=== PATIENT | female | born 2005 | race Caucasian/White ===

== ENCOUNTER 2025-01-27 12:06 | Emergency (ER) | payer BC, SELFPAY ==
[2025-01-27 12:21] VITALS: BP 128/80
[2025-01-27 12:44] VITALS: BMI 18.3
[2025-01-27 13:17] LABS: % Basophils 0.1 % (0-2); % Immature Granulocytes 0.4 % (0-0.5); % Lymphocytes 10.1 % (20.5-51.1); % Monocytes 5.9 % (1.7-9.3); % Neutrophils 83.5 % (42.2-75.2); Absolute Immature Granulocytes 0.1 10^3/uL (0-0.05); Absolute Lymphocytes 1.7 10^3/uL (1.2-3.4); Absolute Neutrophils 14.2 10^3/uL (1.4-6.5); Hematocrit 34.6 % (37.0-47.0); Mean Corp Hgb Conc. 34.7 g/dL (33.0-37.0); Mean Corpuscular Hgb 28.6 pg (27.0-31.0); Mean Corpuscular Volume 82.4 fL (81.0-99.0); Mean Platelet Volume 8.7 fL (7.4-10.4); Nucleated Red Blood Cells % 0 %; Platelet Count 389 10^3/uL (130-400); Red Cell Dist. Width 12.7 % (11.5-14.5); White Blood Cell Count 16.9 10^3/uL (4.8-10.8)
[2025-01-27 13:24] LABS: HCG, Serum Qualitative Screen Negative
[2025-01-27 13:27] LABS: ALT (SGPT) 17 U/L (0-35); AST (SGOT) 21 U/L (14-36); Albumin 5.4 g/dl (3.5-5.0); Alkaline Phosphatase 50 U/L (38-126); Blood Urea Nitrogen 14 mg/dl (7-17); Calcium 11.1 mg/dl (8.4-10.2); Carbon Dioxide 25 mmol/L (22-30); Chloride 101 mmol/L (98-107); Estimated Creatinine Clearance 104 ml/min; Glucose 120 mg/dl (70-99); Lipase 40 U/L (23-300); Sodium 142 mmol/L (135-145); Total Bilirubin 0.9 mg/dl (0.2-1.3); Total Protein 8.5 g/dl (6.3-8.2); eGFR > 60.00
--- NOTE | 2025-01-27 13:32 | ED.GENMED ---
History of Present Illness
General
Chief Complaint: Abdominal Symptoms
Time Seen by Provider: 01/27/25 13:04
History of Present Illness
History of Present Illness:
Patient is a 20-year-old female with a history of recurrent cyclical vomiting who presents to the emergency department with vomiting. She notes that her symptoms usually occur around her menstrual period which she had just last week. She notes
that over the past 3 weeks she has been having some nausea and vomiting in the morning. Over the past 24 hours she endorses persistent vomiting and inability to tolerate p.o. she endorses epigastric abdominal pain that is nonradiating
Phy Exam
Physical Exam
Physical Exam:
GENERAL APPEARANCE: NAD, well developed/ well nourished
EYES lids/conjunctiva normal
EARS/NOSE/THROAT Mucous membranes moist, uvula midline without oral pharyngeal erythema, exudate or swelling
HEAD/NECK normocephalic atraumatic, neck is supple.
RESPIRATORY respiratory effort normal, speaks in full sentences, no accessory muscle use. Lungs clear to auscultation without rhonchi, wheezes, rales
CARDIAC Regular rate and rhythm, no edema.
ABDOMINAL mild epigastric tenderness to palpation. No peritoneal signs. No tenderness at McBurney's point
MUSCLES/EXTREMITIES No abnormal range of motion, no swelling.
SKIN Warm, pink and dry. No rashes
NEUROLOGICAL Speech is clear and appropriate. Normal level of consciousness. 5/5 strength in all extremities.
PSYCH Normal mood and affect. Judgement/competence is appropriate
Course
Orders/Labs/Results
Orders:
Orders
01/27/25 12:13
Test Result ONCE
01/27/25 12:52
Complete Blood Count/With Diff Urgent
Comprehensive Metabolic Panel Urgent
HCG, Serum Qualitative Screen Urgent
Comment: Notify provider if positive test present
Lipase Urgent
01/27/25 13:29
0.9% Sodium Chloride 1000 ml [Nss] 1,000 ml IV BOLUS
Ondansetron Injectable [Zofran] 4 mg IV NOW STA
01/27/25 15:14
Prochlorperazine [Compazine] 10 mg IV NOW STA
Abnormal Lab Results
01/27/25
12:52
WBC 16.9 H 10^3/uL
(4.8-10.8)
Hct 34.6 L %
(37.0-47.0)
Abs Immat Gran (auto) 0.1 H 10^3/uL
(0-0.05)
Absolute Neuts (auto) 14.2 H 10^3/uL
(1.4-6.5)
Absolute Monos (auto) 1.0 H 10^3/uL
(0.1-0.6)
Neutrophils % 83.5 H %
(42.2-75.2)
Lymphocytes % 10.1 L %
(20.5-51.1)
Glucose 120 H mg/dl
(70-99)
Calcium 11.1 H mg/dl
(8.4-10.2)
Total Protein 8.5 H g/dl
(6.3-8.2)
Albumin 5.4 H g/dl
(3.5-5.0)
01/27/25 12:52
01/27/25 12:52
Vital Signs
Initial and Last Documented VS:
Initial Vital Signs
Temp Pulse Resp BP Pulse Ox
98.4 F 63 18 128/80 99
01/27/25 12:21 01/27/25 12:21 01/27/25 12:21 01/27/25 12:21 01/27/25 12:21
Last Documented Vital Signs
Temp Pulse Resp BP Pulse Ox
98.4 F 63 18 128/80 99
01/27/25 12:21 01/27/25 12:21 01/27/25 12:21 01/27/25 12:21 01/27/25 12:21
*Critical Care Note
Total Time (30-74mins, 75-104mins- exclusive of procedures): Not Applicable
ED Attending Note
ED Attending Note
ED Attending Note:
Patient presents with recurrent vomiting consistent with prior episodes of cyclic vomiting syndrome. She has nontender abdominal exam and is nontoxic in appearance. Will treat symptomatically and reassess
Patient feeling much better at this time. Metabolic panel is reassuring without evidence of significant dehydration or electrolyte abnormalities. CBC with noted leukocytosis. Patient has no abdominal pain at this time and no tenderness, doubt
intra-abdominal emergency, likely reactive from vomiting. Return precautions given for worsening symptoms
-
Portions of this chart may have been created with voice recognition software.� Occasional wrong word or��sound alike� substitutions may have occurred due to the inherent limitations of voice recognition software.
Discharge Plan
Departure
Patient with high blood pressure during this ER visit?: No
Discharge Problem:
Nausea & vomiting
Instructions: Nausea and Vomiting, Adult (DC)
Prescriptions:
New
prochlorperazine maleate 10 mg tablet
10 mg PO Q8H PRN (Reason: nausea and vomiting) Qty: 14 0RF
Referrals:
KHALID,OROZCO [Other]
Interventions
Interventions:
*Risk Screen - Suicide Last Done: 01/27/25 12:21
*General Assessment Last Done: 01/27/25 12:21
*Neglect/Abuse Screening Last Done: 01/27/25 12:44
*ED- Fall Risk Assessment Last Done: 01/27/25 12:21
*ED COVID-19 Vaccine History Last Done: 01/27/25 12:21
XV-Vrblfa-Ffhaasxeoy Assessment Last Done: 01/27/25 12:44
Discharge Date and Time
Print Language: GRENADIAN
[2025-01-27] MEDS: ZOFRAN 4 MG IV (13:56)
[2025-01-27] MEDS: NSS 1000 IV (13:57)
[2025-01-27] MEDS: COMPAZINE 10 MG IV (15:24)
[2025-01-27 16:28] VITALS: BP 99/63
== END 2025-01-27 17:07 | disposition home or self-care (01) ==
LOC: EMR 12:06
PROVIDERS: Emergency Medicine; EMERGENCY PHYSICIAN Emergency Medicine
DX: R11.2 Nausea with vomiting, unspecified (principal); R10.13 Epigastric pain; D72.829 Elevated white blood cell count, unspecified
CPT/HCPCS: 96374; 96375; 96361; 99284; 80053; 83690; 84703; 85025

== ENCOUNTER 2025-01-28 16:27 | Emergency (ER) | payer BC, SELFPAY ==
[2025-01-28 16:30] VITALS: BP 132/73
--- NOTE | 2025-01-28 17:35 | ED.GENMED ---
History of Present Illness
General
Chief Complaint: Abdominal Symptoms
Source: patient and records
Exam Limitations: none
Time Seen by Provider: 01/28/25 17:26
History of Present Illness
History of Present Illness:
20yoF with a history of cyclic vomiting syndrome presenting with her significant other for evaluation of vomiting. Symptoms began 2 days ago and have been persistent. She also reports a burning pain in her epigastric region that is nonradiating.
She was seen in the ED yesterday for the same and received IV Zofran as well as Compazine. She was able to be discharged and was given a prescription for Compazine. She has been taking Compazine, Benadryl, and Pepcid at home without any relief.
Symptoms are identical to her prior cyclic vomiting episodes. She used to have episodes every few months but has not had an episode in over a year. She denies any fevers or diarrhea. Patient follows with gastroenterology in [place] where
she lives. She is in the area for college. She admits to smoking marijuana daily but does not believe her current symptoms are related to this.
Phy Exam
Physical Exam
Physical Exam:
Appears uncomfortable, non-toxic
General Physical Exam
General Presentation: well appearing
General age: appears stated age
General Skin: warm and dry
General Habitus: normal
General Mental: alert
ENT Exam
ENT Exam: normocephalic
Cardiovascular Exam
Cardiovascular Exam: regular rate/rhythm
Pulmonary Exam
Pulmonary Exam: lungs clear, no respiratory distress, no rales, no crackles, no rhonchi and no wheezing
Gastrointestinal Exam
Gastrointestinal Exam: soft, non distended and other (+Epigastric tenderness. No tenderness throughout remainder of abdomen. Abdomen soft, non-distended. No rebound or guarding.)
Neurological Exam
Neurological Exam: alert
[place] Coma Scale
Eye Opening: Spontaneous
Verbal Response: Oriented
Motor Response: Obeys Commands
GCS Total Score: 15
Skin Exam
Skin Exam: normal color and warm/dry
Psychiatric Exam
Psychiatric Exam: normal mood/affect
Course
Orders/Labs/Results
Orders:
Orders
01/28/25 16:33
Test Result ONCE
01/28/25 17:34
0.9% Sodium Chloride 1000 ml [Nss] 1,000 ml IV BOLUS
Diphenhydramine [Benadryl] 25 mg IV NOW STA
Famotidine [Pepcid] 20 mg IV NOW STA
Ondansetron Injectable [Zofran] 4 mg IV NOW STA
US Abdomen Complete/Upper Urgent
Comment:
Reason For Exam: epigastric pain
01/28/25 18:02
Complete Blood Count/With Diff Urgent
Comprehensive Metabolic Panel Urgent
HCG, Serum Qualitative Screen Urgent
Lipase Urgent
01/28/25 20:16
Haloperidol Lactate [Haldol] 1 mg IM NOW STA
Ketorolac [Toradol] 15 mg IV NOW STA
01/28/25 20:18
Haloperidol Lactate [Haldol] 5 mg IM NOW STA
Abnormal Lab Results
01/28/25
18:02
WBC 14.6 H 10^3/uL
(4.8-10.8)
RBC 3.90 L 10^6/uL
(4.20-5.40)
Hgb 11.3 L g/dL
(12.0-16.0)
Hct 32.2 L %
(37.0-47.0)
Abs Immat Gran (auto) 0.1 H 10^3/uL
(0-0.05)
Absolute Neuts (auto) 11.2 H 10^3/uL
(1.4-6.5)
Absolute Monos (auto) 0.8 H 10^3/uL
(0.1-0.6)
Immature Gran % 0.6 H %
(0-0.5)
Neutrophils % 77.2 H %
(42.2-75.2)
Lymphocytes % 16.2 L %
(20.5-51.1)
Glucose 107 H mg/dl
(70-99)
Albumin 5.4 H g/dl
(3.5-5.0)
01/28/25 18:02
01/28/25 18:02
Vital Signs
Initial and Last Documented VS:
Initial Vital Signs
Temp Pulse Resp BP Pulse Ox
97.6 F 63 16 132/73 99
01/28/25 16:30 01/28/25 16:30 01/28/25 16:30 01/28/25 16:30 01/28/25 16:30
Last Documented Vital Signs
Temp Pulse Resp BP Pulse Ox
97.6 F 87 16 118/65 99
01/28/25 16:30 01/28/25 23:13 01/28/25 16:30 01/28/25 23:13 01/28/25 23:13
MDM/Problems Addressed
Differential Diagnosis Includes:
20yoF here with vomiting x 2 days. Also c/o burning epigastric pain. Hx of cyclic vomiting syndrome and this feels the same. Also smokes marijuana daily. Seen in ED yesterday for the same. VSS. She appears uncomfortable but is nontoxic. No signs
of peritonitis on abdominal exam. Differential diagnosis includes but is not limited to: Cyclic vomiting syndrome, cannabinoid hyperemesis syndrome, pancreatitis, biliary colic, dehydration
Initial ED plan: Check abdominal labs, hCG, and upper abdominal ultrasound. IV Zofran, Benadryl, Pepcid, and fluid bolus for symptoms.
*Critical Care Note
Total Time (30-74mins, 75-104mins- exclusive of procedures): Not Applicable
Update Note
Update Note:
Labs reveal leukocytosis with a white count of 14.6 which is improved from yesterday. Remainder of labs unremarkable including normal electrolytes, renal function, and LFTs. Upper abdominal ultrasound shows diffuse fatty liver but otherwise
negative for acute findings. Patient continues to have vomiting after initial round of antiemetics. IM Haldol subsequently ordered. Nausea significantly improved after receiving Haldol and there have been no further episodes of vomiting. Patient
is stable for discharge. Supportive care discussed. Advised follow-up with gastroenterology and ED return precautions reviewed. Patient discharged in stable condition.
ED Attending Note
-
Portions of this chart may have been created with voice recognition software.� Occasional wrong word or��sound alike� substitutions may have occurred due to the inherent limitations of voice recognition software.
Discharge Plan
Departure
Patient Disposition: Home (Routine Discharge)
Date of Disposition: 01/28/25
Time of Disposition: 23:06
Patient with high blood pressure during this ER visit?: No
Discharge Problem:
Nausea and vomiting
Instructions: Nausea and Vomiting, Adult (DC)
Prescriptions:
No Action
prochlorperazine maleate 10 mg tablet
10 mg PO Q8H PRN (Reason: nausea and vomiting) Qty: 14 0RF
Referrals:
Jenn Ulloa MD [Active] -
PRIVATE,PHYSICIAN [Family Provider] -
Activity Restrictions/Additional Instructions:
Continue taking Compazine as needed. Drink plenty of fluids and advance slowly to a bland diet (bananas, rice, applesauce, and toast.).
Please follow-up with gastroenterology. Return to the ER with any new or worsening symptoms.
Interventions
Interventions:
*Risk Screen - Suicide Last Done: 01/28/25 16:35
*General Assessment Last Done: 01/28/25 16:33
*Neglect/Abuse Screening Last Done: 01/28/25 18:07
*ED- Fall Risk Assessment Last Done: 01/28/25 18:07
*ED COVID-19 Vaccine History Last Done: 01/28/25 18:07
*Nursing Disposition Last Done: 01/28/25 23:32
EU-Tlvweu-Apevammisq Assessment Last Done: 01/28/25 18:13
Discharge Date and Time
Discharge Date/Time: 01/28/25 23:35
Print Language: BRUNEIAN
[2025-01-28] MEDS: NSS 1000 IV (18:03)
[2025-01-28] MEDS: ZOFRAN 4 MG IV (18:04)
[2025-01-28] MEDS: BENADRYL 25 MG IV (18:04)
[2025-01-28] MEDS: PEPCID 20 MG IV (18:05)
[2025-01-28 18:09] VITALS: BP 143/84; BMI 19.1
[2025-01-28 18:20] LABS: % Basophils 0.4 % (0-2); % Immature Granulocytes 0.6 % (0-0.5); % Lymphocytes 16.2 % (20.5-51.1); % Monocytes 5.6 % (1.7-9.3); % Neutrophils 77.2 % (42.2-75.2); Absolute Basophils 0.1 10^3/uL (0-0.2); Absolute Immature Granulocytes 0.1 10^3/uL (0-0.05); Absolute Lymphocytes 2.4 10^3/uL (1.2-3.4); Absolute Monocytes 0.8 10^3/uL (0.1-0.6); Absolute Neutrophils 11.2 10^3/uL (1.4-6.5); Hematocrit 32.2 % (37.0-47.0); Hemoglobin 11.3 g/dL (12.0-16.0); Mean Corp Hgb Conc. 35.1 g/dL (33.0-37.0); Mean Corpuscular Volume 82.6 fL (81.0-99.0); Mean Platelet Volume 8.9 fL (7.4-10.4); Nucleated Red Blood Cells % 0 %; Platelet Count 384 10^3/uL (130-400); Red Cell Dist. Width 12.7 % (11.5-14.5); White Blood Cell Count 14.6 10^3/uL (4.8-10.8)
[2025-01-28 18:30] LABS: HCG, Serum Qualitative Screen Negative
[2025-01-28 18:34] LABS: ALT (SGPT) 18 U/L (0-35); AST (SGOT) 22 U/L (14-36); Albumin 5.4 g/dl (3.5-5.0); Alkaline Phosphatase 56 U/L (38-126); Blood Urea Nitrogen 13 mg/dl (7-17); Calcium 10.1 mg/dl (8.4-10.2); Carbon Dioxide 24 mmol/L (22-30); Chloride 100 mmol/L (98-107); Estimated Creatinine Clearance 109 ml/min; Glucose 107 mg/dl (70-99); Lipase 60 U/L (23-300); Potassium 3.5 mmol/L (3.5-5.1); Sodium 140 mmol/L (135-145); Total Bilirubin 0.7 mg/dl (0.2-1.3); Total Protein 7.8 g/dl (6.3-8.2); eGFR > 60.00
[2025-01-28 20:17] VITALS: BP 136/81
[2025-01-28] MEDS: HALDOL 5 MG IM (20:32)
[2025-01-28] MEDS: TORADOL 15 MG IV (20:34)
[2025-01-28 23:13] VITALS: BP 118/65
== END 2025-01-28 23:35 | disposition home or self-care (01) ==
LOC: EMR 16:27
PROVIDERS: Student in an Organized Health Care Education/Training Program; EMERGENCY PHYSICIAN Emergency Medicine
DX: R11.2 Nausea with vomiting, unspecified (principal); F12.90 Cannabis use, unspecified, uncomplicated; R10.13 Epigastric pain; K76.0 Fatty (change of) liver, not elsewhere classified
CPT/HCPCS: 99284; 96374; 96375; 96361; 76700; 80053; 83690; 84703; 85025

== ENCOUNTER 2025-02-01 10:59 | Inpatient (IN) | payer BC, SELFPAY ==
[2025-01-29 08:38] VITALS: BP 148/99
[2025-01-29 09:05] VITALS: BMI 18.9
[2025-01-29 09:23] LABS: % Basophils 0.4 % (0-2); % Eosinophils 0.1 % (0-6); % Immature Granulocytes 0.5 % (0-0.5); % Lymphocytes 23.2 % (20.5-51.1); % Monocytes 7.3 % (1.7-9.3); % Neutrophils 68.5 % (42.2-75.2); Absolute Immature Granulocytes 0.1 10^3/uL (0-0.05); Absolute Lymphocytes 2.3 10^3/uL (1.2-3.4); Absolute Monocytes 0.7 10^3/uL (0.1-0.6); Absolute Neutrophils 6.7 10^3/uL (1.4-6.5); Hematocrit 30.3 % (37.0-47.0); Hemoglobin 10.6 g/dL (12.0-16.0); Mean Corpuscular Hgb 29.2 pg (27.0-31.0); Mean Corpuscular Volume 83.5 fL (81.0-99.0); Mean Platelet Volume 8.9 fL (7.4-10.4); Nucleated Red Blood Cells % 0 %; Platelet Count 331 10^3/uL (130-400); Red Blood Cell Count 3.63 10^6/uL (4.20-5.40); Red Cell Dist. Width 12.4 % (11.5-14.5); White Blood Cell Count 9.7 10^3/uL (4.8-10.8)
--- NOTE | 2025-01-29 09:24 | ED.GENMED ---
History of Present Illness
General
Chief Complaint: Abdominal Symptoms
Source: patient and records
Exam Limitations: none
Time Seen by Provider: 01/29/25 08:47
Nursing documentation reviewed up to this point in time: agreed with
History of Present Illness
History of Present Illness:
20-year-old female with past medical history as noted presents to the ER for evaluation of abdominal pain, nausea, vomiting. Patient has been here each of the last 2 days for similar symptoms. Symptoms started about 3 days ago and have essentially
been constant although she reports transient relief after each of her 2 emergency room visits over the past 48 hours. She reports pain in the epigastrium that is nonradiating. Associated with nausea and multiple episodes of vomiting. No clear
triggering factors noted. She says that masturbation relieves her symptoms. She denies any dysuria, hematuria, change in urinary frequency. She denies any vaginal bleeding or discharge. She has not had any diarrhea; she does report some mild
constipation. She has not had a fever or chills. She denies prior abdominal surgeries. She said she has had similar symptoms in the past; had endoscopy with no clear diagnosis; was diagnosed with cyclic vomiting. She did apparently report
marijuana use yesterday.
Review of Systems
Review of Systems
All Other Systems: ROS reviewed and negative except as documented in HPI and ROS
Constitutional: Denies fever or chills
Respiratory: Denies trouble breathing
Cardiac: Denies chest pain
ABD/GI: Reports abdominal pain, nausea, vomiting and constipated; Denies diarrhea
: Denies dysuria, frequency, flank pain or bleeding
Musculoskeletal: Denies neck pain or back pain
Neurological: Denies dizzy or headache
Phy Exam
Physical Exam
Physical Exam:
General: Awake, alert, oriented x3; no acute distress
Head: Normocephalic, atraumatic
Eyes: Conjunctiva normal, sclera anicteric
Throat: Airway intact, handling secretions
Neck: Trachea midline, supple without meningismus
Lungs: Clear to auscultation bilaterally, no wheezing, rales, rhonchi
Heart: Regular rate and rhythm, no murmurs, gallops, or rubs
Abd: Soft, non distended, tender to palpation in the epigastrium with no palpable masses
Back: No CVA tenderness
Neuro: No gross deficits
Skin: no rash
Extremities: Warm and well-perfused
Scores
Heart Failure Risk
Heart Failure Risk Score: Not Applicable
Heart Score for Chest Pain Patients
STEMI patient?: Not applicable
Withdrawal Assessment of Alcohol
Withdrawal Assessment Completed?: Not applicable
Course
Orders/Labs/Results
Orders:
Orders
01/29/25 08:50
Test Result ONCE
01/29/25 09:05
Complete Blood Count/With Diff Urgent
Comprehensive Metabolic Panel Urgent
HCG, Serum Qualitative Screen Urgent
01/29/25 09:22
CT Abd/pelvis W Iv Cont Urgent
Comment:
Reason For Exam: upper abd pain and tenderness, N/V
01/29/25 09:23
Electrocardiogram (*1) Urgent
Reason for Study: QTc Monitoring
EKG- Treatment ONCE
Haloperidol Lactate [Haldol] 2.5 mg IV NOW STA
01/29/25 09:24
0.9% Sodium Chloride 1000 ml [Nss] 1,000 ml IV BOLUS
01/29/25 09:35
Lipase Urgent
01/29/25 10:59
Ketorolac [Toradol] 15 mg IV NOW STA
Abnormal Lab Results
01/29/25
09:05
RBC 3.63 L 10^6/uL
(4.20-5.40)
Hgb 10.6 L g/dL
(12.0-16.0)
Hct 30.3 L %
(37.0-47.0)
Abs Immat Gran (auto) 0.1 H 10^3/uL
(0-0.05)
Absolute Neuts (auto) 6.7 H 10^3/uL
(1.4-6.5)
Absolute Monos (auto) 0.7 H 10^3/uL
(0.1-0.6)
Glucose 107 H mg/dl
(70-99)
01/29/25 09:05
01/29/25 09:05
Vital Signs
Initial and Last Documented VS:
Initial Vital Signs
Temp Pulse Resp BP Pulse Ox
36.7 C 60 16 148/99 99
01/29/25 08:38 01/29/25 08:38 01/29/25 08:38 01/29/25 08:38 01/29/25 08:38
Last Documented Vital Signs
Temp Pulse Resp BP Pulse Ox
36.7 C 60 16 148/99 99
01/29/25 08:38 01/29/25 08:38 01/29/25 08:38 01/29/25 08:38 01/29/25 08:38
MDM/Problems Addressed
Differential Diagnosis Includes:
Cannabinoid hyperemesis syndrome, cyclic vomiting, gastroparesis, gastritis, PUD, bowel obstruction, Cholelithiasis, cholecystitis, pancreatitis
MDM/Problems Addressed:
20-year-old female returns for the third time in 3 days for evaluation of epigastric pain with nausea and vomiting. Unremarkable workup previous 2 visits including labs and upper abdominal ultrasound yesterday. She did have transient symptomatic
relief but symptoms quickly returned when she went home. Vitals and exam as above. This clinical picture is consistent with cannabinoid hyperemesis syndrome. Nevertheless given refractory symptoms we will check CT abdomen pelvis. Repeat lab
work. Treat symptomatically�she reports significant improvement with Tylenol yesterday. EKG for QTc monitoring. Will reassess after the above.
Labs reviewed: CBC and CMP no clinically significant abnormalities. hCG negative. CT abdomen pelvis shows no acute abnormalities to account for her symptoms. Patient requesting repeat pain medication after initial mild improvement with Haldol.
Will plan to admit for continued management of intractable nausea and vomiting and failure of outpatient management�at this point working diagnosis would be cannabinoid hyperemesis syndrome. Discussed case with hospitalist.
*Radiology
Radiology exam reviewed: radiology read reviewed
*Pulse Oximetry
Patient hypoxic: no
*EKG
Interpreted by ED Provider?: Yes
Heart Rate: 52
Rate: bradycardiac
Rhythm: sinus
[place]: normal axis
Interval: normal interval and normal QT interval
QRS Pattern: normal QRS
Ischemia: no ischemia
*Critical Care Note
Total Time (30-74mins, 75-104mins- exclusive of procedures): Not Applicable
Data Reviewed
Review of Other/Old Records Reveals: Labs, Records and Radiology Studies
Source: patient and records
Patient Management
Social determinants of health affecting care: Substance abuse (Marijuana abuse)
Discussion with other providers: Hospitalist (Discussed with hospitalist)
Escalation/DeEscalation of care consider admission/obs:
Admission indicated
ED Attending Note
-
Portions of this chart may have been created with voice recognition software.� Occasional wrong word or��sound alike� substitutions may have occurred due to the inherent limitations of voice recognition software.
Discharge Plan
Departure
Patient Disposition: Admit
Date of Disposition: 01/29/25
Time of Disposition: 11:11
Admit to doctor: Errol
Presentation/result/management discussed w/ accepting MD/DO: Hospitalist
Discharge Problem:
Abdominal pain, Nausea & vomiting
Prescriptions:
No Action
diphenhydramine HCl [Benadryl] 25 mg Capsule
25 mg PO DAILYPRN PRN (Reason: nausea/vomiting)
prochlorperazine maleate 10 mg tablet
10 mg PO Q8HPRN PRN (Reason: nausea and vomiting)
Referrals:
PRIVATE,PHYSICIAN [Family Provider] -
Interventions
Interventions:
*Risk Screen - Suicide Last Done: 01/29/25 08:38
*General Assessment Last Done: 01/29/25 09:05
*Neglect/Abuse Screening Last Done: 01/29/25 08:38
SY-Bfjumd-Zwzehjbvfq Assessment Last Done: 01/29/25 09:12
Discharge Date and Time
Print Language: KHMER
[2025-01-29 09:36] LABS: ALT (SGPT) 17 U/L (0-35); AST (SGOT) 30 U/L (14-36); Albumin 4.3 g/dl (3.5-5.0); Alkaline Phosphatase 46 U/L (38-126); Blood Urea Nitrogen 12 mg/dl (7-17); Calcium 9.4 mg/dl (8.4-10.2); Carbon Dioxide 26 mmol/L (22-30); Chloride 104 mmol/L (98-107); Estimated Creatinine Clearance 107 ml/min; Glucose 107 mg/dl (70-99); Potassium 3.5 mmol/L (3.5-5.1); Sodium 139 mmol/L (135-145); Total Bilirubin 0.7 mg/dl (0.2-1.3); Total Protein 6.5 g/dl (6.3-8.2); eGFR > 60.00
[2025-01-29] MEDS: NSS 1000 IV ×2 (09:36→19:47)
[2025-01-29] MEDS: HALDOL 2.5 MG IV (09:36)
[2025-01-29 09:38] LABS: HCG, Serum Qualitative Screen Negative
[2025-01-29 10:12] LABS: Lipase 58 U/L (23-300)
[2025-01-29] MEDS: TORADOL 15 MG IV (11:08)
[2025-01-29 11:12] VITALS: BP 130/81
[2025-01-29] MEDS: PROTONIX IV 40 MG IV (11:48)
--- NOTE | 2025-01-29 13:53 | HPS.HSE ---
Addendum entered and electronically signed by Joesph Scott MD 01/29/25 19:03:
Attending Addendum-
I performed a history and physical exam of the patient and discussed his management with the resident. I reviewed the resident's note and agree with the documented findings and plan of care CC/HPI- Patient presents after multiple trips to ED for abd
pain and vomiting. Patient has been having intractable nonbilious non bloody vomiting and unable to marianne PO. Denies diarrhea sick contacts. No fevers chills Full 12 point ROS reviewed and negative except as documented Exam- vitals reviewed in EMR
GEN-pale appearing heart tachycardic abd soft TTP RUQ abd soft LE no edema Neuro AAO x 3 Skin-dry
Plan:
# Intractable Vomiting
- likely CHS
- admit to obs
- has had multiple ED visits
- could have component of endometriosis
- given Toradol and Haldol with improvement
- CT A/P 01/29- 1.Mild heterogeneity of the liver parenchyma with findings of periportal edema, likely secondary to hypervolemia. Mild wall thickening/pericholecystic fluid within the adjacent gallbladder
2.Unremarkable appendix. No nephrolithiasis or hydronephrosis.
3.Small amount of free fluid within the pelvis which could be physiologic in nature or secondary to a ruptured cyst. There is a rim-enhancing cyst within the left posterior pelvis measuring 19 mm.
- cont IVF, cont supportive care
- advance diet as tolerated
- advised to quit Cannibis
# Cannibis Use Disorder
- advised to quit
- check urine tox
# Anemia
- will require OP follow up
- likely in part dilutional
Code Full
Dispo DC home in am
Time spent coordinating care, review of plan of care with resident, personally reviewed previous ED records in EMR, med rec, labs, radiology, d/w nursing, family �- 75 mins
Original Note:
Family Physician
-
Family Physician: PHYSICIAN PRIVATE
Chief Complaint
-
Abdominal Pain
Intractable Nausea/Vomiting
History of Present Illness
Cassie is a 20 year old female with no significant past medical history who presented to the [facility] for recurrent intractable nausea and vomiting with multiple ED visits in the past 72 hours.
Her symptoms began the afternoon of 01/26/25 when she felt unwell, began to have abdominal pain and nausea while at the grocery store. She went home immediately where she vomited up food content, w/o blood or bile. During the next 48 hours she
developed intractable nausea and vomiting, with inability to tolerate PO. She has had similar symptoms in the past which tend to correlate with her menses. Her LMP was 1 week before the onset of symptoms. She was tried on oral prochlorperazine after
DC from the ED, however she still had abdominal pain, nausea and vomiting. Of note, she has a >1 year history of cannabis use, approximately 1g cartridge every 1-2 weeks, smoking every day. She admits to using cannabis the morning of 01/29/2025 in an
attempt to help the pain/n/v. She does not endorse any fevers, chills, diarrhea, constipation, dysuria during this time. She endorses history of STIs.
During interview she is not complaining of any nausea, vomiting or abd pain. She is comfortable, but tired.
Medical History
Past Medical History
Past Medical History: Reports None
Additional Past Medical History:
Possible Dx of Endometriosis
Past Surgical History: Reports None
Social History
Tobacco: Smoker (1-2 cig. every 1-2 months)
Alcohol: Occasional
Drug: Marijuana
Personal: Single
Employment: Employed
Family History
Family History: Other (Mother: Antiphospholipid Ab Syndrome)
Allergies / Home Medications
Allergies reflects when Allergies were last updated in [facility].
Home Medications with original date entered in [facility]
Allergy/Medication List:
Allergies
Allergy/AdvReac Type Severity Reaction Status Date / Time
erythromycin base Allergy Hives Verified 01/29/25 08:40
Penicillins Allergy Hives Verified 01/29/25 08:40
Sulfa (Sulfonamide Allergy Hives Verified 01/29/25 08:40
Antibiotics)
Home Medications
diphenhydramine HCl 25 mg capsule (Benadryl) 25 mg PO DAILYPRN PRN nausea/vomiting 01/29/25
prochlorperazine maleate 10 mg tablet 10 mg PO Q8HPRN PRN nausea and vomiting 01/29/25
Review of Systems
-
History Source: Patient
A 12 point ROS was completed and negative except as noted: Yes
Constitutional: Denies Fever or Chills
EENT: Reports No Symptoms
Respiratory: Reports No Symptoms
Cardiac: Reports No Symptoms
Abdomen/GI: Reports No Symptoms
: Reports No Symptoms
Musculoskeletal: Reports No Symptoms
Skin: Reports No Symptoms
Neurological: Reports No Symptoms
Endocrine: Reports No Symptoms
Hematologic/Lymphatic: Reports No Symptoms
Psych: Reports No Symptoms
Physical Exam
Vital Signs
Vital Signs
Temp Pulse Resp BP Pulse Ox
98.0 F 54 16 130/81 100
01/29/25 08:38 01/29/25 11:12 01/29/25 11:12 01/29/25 11:12 01/29/25 11:12
Physical Exam
General: Well Developed, Well Nourished, No Apparent Distress, Comfortable and Conversant
HEENT: NormoCephalic, Anicteric, Moist mucous membranes, PERRLA, [place] Conjunctivae, Nose Appears Normal and Ears Appear Normal
Respiratory: Clear; No Wheezes, Rales or Rhonchi
Cardiac: S1/S2 and Regular Rhythm; No Murmur or Rub
Breast: Deferred by me
GI: Soft, Non Distended, Normal Bowel Sounds and Tender (LUQ and Epigastric region)
Rectal: Deferred by Provider
Genito-urinary: No costovertebral tender
Musculoskeletal: No Clubbing, No Cyanosis and No Edema
Skin: Warm, Dry and IV/Catheter Site
Neuro: Awake, Alert and Oriented
Psych: Calm and Intact Judgment/Insight
Laboratory Results
-
01/29/25 09:05
01/29/25 09:05
Laboratory Results
Total Bilirubin 0.7 mg/dl (0.2-1.3) 01/29/25 09:05
AST 30 U/L (14-36) 01/29/25 09:05
ALT 17 U/L (0-35) 01/29/25 09:05
Alkaline Phosphatase 46 U/L (38-126) 01/29/25 09:05
Lipase 58 U/L (23-300) 01/29/25 09:35
Impression/Plan
-
20 year old female with recurrent episodes of intractable abdominal pain/nausea/vomiting x72 hours
CT Abd/pelvis W Iv Cont:
1. Mild heterogeneity of the liver parenchyma with findings of periportal edema, likely secondary to hypervolemia. Mild wall thickening/pericholecystic fluid within the adjacent gallbladder, which may be reactive in nature. Correlation with LFTs
recommended to exclude hepatitis.
2. Unremarkable appendix. No nephrolithiasis or hydronephrosis.
3. Small amount of free fluid within the pelvis which could be physiologic in nature or secondary to a ruptured cyst. There is a rim-enhancing cyst within the left posterior pelvis measuring 19 mm.
#Abdominal Pain
#Intractable Nausea/Vomiting
- possibly secondary to Endometriosis vs. Cannabinoid Hyperemesis Syndrome vs. multifactorial
- Patient has a history of cyclical vomiting/abdominal pain near time of menses which fits clinically, however she also has a clinical picture consistent with CHS along with concurrent continued cannabis use. Suspect sx are multifactorial, with
worsening of sx due to continued cannabis use.
- CT scan showing possible ruptured L ovarian cyst with small amount of free pelvic fluid
- given 1 dose Haldol/Toradol w/ improvement
- C/w Benadryl/Prochlorperazine prn
- gentle hydration
- Toradol prn for abd pain
- Observe for PO tolerance
#Cannabis Use Disorder
- counselled the patient on the importance of quitting cannabis use at she has now had 3 hospital visits for similar symptoms for which her cannabis use is likely contributing
DVT Ppx: Lovenox 40mg SC
Regular Diet
Code Status: Full Code
[2025-01-29 17:45] VITALS: BP 109/67
[2025-01-29 19:25] VITALS: BP 109/67; BMI 18.5
[2025-01-29 23:18] VITALS: BP 116/74
[2025-01-30] MEDS: TORADOL 15 MG IV ×3 (00:37→16:06)
[2025-01-30] MEDS: BENADRYL 25 MG PO (00:37)
[2025-01-30] MEDS: ZOFRAN 4 MG IV ×2 (01:44→11:53)
[2025-01-30] MEDS: NSS 1000 IV ×2 (06:14→16:12)
[2025-01-30 07:25] VITALS: BP 134/82
[2025-01-30] MEDS: PROTONIX 40 MG PO (07:51)
[2025-01-30 10:37] LABS: Urine Albumin Negative (Neg - Trace); Urine Bilirubin Negative (Negative); Urine Character Clear (Clear); Urine Color Yellow; Urine Glucose Negative (Negative); Urine Ketone 3+ (Negative); Urine Leukocyte Negative (Negative); Urine Nitrite Negative (Negative); Urine Occult Blood Negative (Negative); Urine Specific Gravity 1.015 (<1.030); Urine Urobilinogen Negative (Neg - 1+)
--- NOTE | 2025-01-30 11:10 | W.PN.HOSP.TC ---
Today's Communication/Plan
-
re-evaluate diet tolerance and symptoms later this afternoon
await UDS
Assessment / Plan
Assessment / Plan
Assessment:
Abd pain/Nausea/vomiting
- ddx: endometriosis vs cyclic vomiting from CHS vs other
- CT: mild heterogeneity of the liver parenchyma with findings of periportal edema, likely secondary to hypervolemia. Mild wall thickening/pericholecystic fluid within the adjacent gallbladder, which may be reactive in nature. Unremarkable
appendix. No nephrolithiasis or hydronephrosis. Small amount of free fluid within the pelvis which could be physiologic in nature or secondary to a ruptured cyst. There is a rim-enhancing cyst within the left posterior pelvis measuring 19 mm.
- labs unremarkable, no evidence of adrenal insufficiency
- continue support care
- re-trial diet
- MJ cessation advised. UDS pending
- UA clear
DVT ppx: Lovenox
Code: Full
Anticipated Discharge: Within 24 hours
Subjective/Interval History
-
Date of Service: January 30, 2025
vomited dinner last evening
pain controlled with Toradol
now hungry this AM and eager for diet
no nausea
no fever/chills
Objective Data
-
Vital Signs:
Vital Signs
Temp Pulse Resp BP Pulse Ox
98.2 F 56 18 134/82 98
01/30/25 07:25 01/30/25 07:25 01/30/25 07:25 01/30/25 07:25 01/30/25 07:25
Physical Exam
-
General: No Apparent Distress
HEENT: Normocephalic and Atraumatic
Respiratory: Negative Wheezes
Cardiac: Regular Rhythm and S1/S2
GI: Soft and Nontender
Genito-urinary: No Costovertebral Tender
Musculoskeletal: No Edema
Neuro: AO x 3
Psych: Calm
Data Reviewed
-
Total Time Spent with Patient (in minutes): 41
Labs: Labs Reviewed by me
[2025-01-30 12:00] LABS: Amphetamines Negative (Negative); Barbiturates Negative (Negative); Benzodiazepines Negative (Negative); Buprenorphine Negative (Negative); Cocaine Negative (Negative); Marijuana Positive (Negative); Methadone Negative (Negative); Methamphetamines Negative (Negative); Opiates Negative (Negative); Phencyclidine Negative (Negative); Tricyclic Antidepressants Negative (Negative)
[2025-01-30 15:33] VITALS: BP 118/76
--- NOTE | 2025-01-30 16:18 | CM ---
Awake oriented patient who lives in college dorm on first floor. She is independent in activates of daily living.She does not drive .She lives in [place]. Her SO Ignacio here with support.Observation letter given . Pt did not sign letter on chart.
No VN in past . No SNF hx
Pharmacy [facility] [address]
PLAN Home with no needs
[2025-01-30 23:27] VITALS: BP 101/61
[2025-01-31] MEDS: ZOFRAN 4 MG IV ×3 (00:40→12:49)
[2025-01-31] MEDS: TORADOL 15 MG IV ×3 (00:48→12:50)
[2025-01-31] MEDS: NSS 1000 IV ×3 (01:30→22:37)
[2025-01-31] MEDS: BENADRYL 25 MG PO (03:24)
[2025-01-31 06:32] LABS: Hematocrit 30.3 % (37.0-47.0); Hemoglobin 10.9 g/dL (12.0-16.0); Mean Corpuscular Hgb 29.5 pg (27.0-31.0); Mean Corpuscular Volume 81.9 fL (81.0-99.0); Mean Platelet Volume 9.1 fL (7.4-10.4); Platelet Count 334 10^3/uL (130-400); Red Cell Dist. Width 12.1 % (11.5-14.5); White Blood Cell Count 7.8 10^3/uL (4.8-10.8)
[2025-01-31 07:00] LABS: Blood Urea Nitrogen 4 mg/dl (7-17); Carbon Dioxide 20 mmol/L (22-30); Chloride 103 mmol/L (98-107); Estimated Creatinine Clearance 122 ml/min; Glucose 77 mg/dl (70-99); Potassium 3.5 mmol/L (3.5-5.1); Sodium 137 mmol/L (135-145); eGFR > 60.00
[2025-01-31 07:55] VITALS: BP 141/90
--- NOTE | 2025-01-31 09:14 | W.PN.HOSP.TC ---
Today's Communication/Plan
-
downgrade to clears
prn Zofran and Toradol
Assessment / Plan
Assessment / Plan
Assessment:
Abd pain/Nausea/vomiting
- ddx: endometriosis vs cyclic vomiting from Cannabis hyperemesis syndrome vs other
- no evidence of infections
- CT: mild heterogeneity of the liver parenchyma with findings of periportal edema, likely secondary to hypervolemia. Mild wall thickening/pericholecystic fluid within the adjacent gallbladder, which may be reactive in nature. Unremarkable
appendix. No nephrolithiasis or hydronephrosis. Small amount of free fluid within the pelvis which could be physiologic in nature or secondary to a ruptured cyst. There is a rim-enhancing cyst within the left posterior pelvis measuring 19 mm.
- labs unremarkable, no evidence of adrenal insufficiency
- continue support care - Toradol and Zofran prn. Stop Benadryl.
- diet: Clears
- MJ cessation advised. UDS confirms + MJ
- UA clear
DVT ppx: Lovenox
Code: Full
Anticipated Discharge: Within 24 hours
Subjective/Interval History
-
Date of Service: January 31, 2025
vomited dinner last night
this morning nausea, abd cramps
not eating breakfast this morning
Objective Data
-
Labs:
Laboratory Results
01/31/25
05:32
WBC 7.8
Hgb 10.9 L
Hct 30.3 L
Plt Count 334
Sodium 137
Potassium 3.5
Chloride 103
Carbon Dioxide 20 L
BUN 4 L
Creatinine 0.5 L
Glucose 77
Calcium 9.0
Vital Signs:
Vital Signs
Temp Pulse Resp BP Pulse Ox
98.0 F 55 14 141/90 100
01/31/25 07:55 01/31/25 07:55 01/31/25 07:55 01/31/25 07:55 01/31/25 07:55
I&O
01/30/25 01/31/25 02/01/25
06:59 06:59 06:59
Intake Total 0 / 3259
Balance 3259 / 3259
Physical Exam
-
General: No Apparent Distress
HEENT: Normocephalic and Atraumatic
Respiratory: Negative Wheezes
Cardiac: Regular Rhythm and S1/S2
GI: Soft and Nontender
Musculoskeletal: No Edema
Neuro: AO x 3
Hematologic / Lymphatic: No Lymphadenopathy
Psych: Calm
Data Reviewed
-
Total Time Spent with Patient (in minutes): 42
Labs: Labs Reviewed by me
[2025-01-31] MEDS: PROTONIX 40 MG PO (09:24)
[2025-01-31 15:54] VITALS: BP 120/66
[2025-01-31 23:20] VITALS: BP 103/54
[2025-02-01] MEDS: TORADOL 15 MG IV (06:12)
[2025-02-01 06:16] LABS: Hematocrit 34.3 % (37.0-47.0); Hemoglobin 12.1 g/dL (12.0-16.0); Mean Corp Hgb Conc. 35.3 g/dL (33.0-37.0); Mean Corpuscular Volume 82.3 fL (81.0-99.0); Mean Platelet Volume 9.2 fL (7.4-10.4); Platelet Count 362 10^3/uL (130-400); Red Blood Cell Count 4.17 10^6/uL (4.20-5.40); Red Cell Dist. Width 12.4 % (11.5-14.5); White Blood Cell Count 7.9 10^3/uL (4.8-10.8)
[2025-02-01 06:45] LABS: Carbon Dioxide 23 mmol/L (22-30)
[2025-02-01 06:59] LABS: Blood Urea Nitrogen 6 mg/dl (7-17); Calcium 9.4 mg/dl (8.4-10.2); Chloride 105 mmol/L (98-107); Estimated Creatinine Clearance 122 ml/min; Glucose 74 mg/dl (70-99); Potassium 3.5 mmol/L (3.5-5.1); Sodium 139 mmol/L (135-145); eGFR > 60.00
[2025-02-01 07:25] VITALS: BP 140/67
[2025-02-01] MEDS: PROTONIX 40 MG PO (07:26)
[2025-02-01] MEDS: ZOFRAN 4 MG IV (07:26)
--- NOTE | 2025-02-01 08:12 | W.PN.HOSP.TC ---
Addendum entered and electronically signed by Fili Reza MD, Resident 02/03/25 18:12:
#Underweight, BMI 18.5
Addendum entered and electronically signed by Joesph Scott MD 02/01/25 22:53:
Attending Addendum-
I saw and evaluated the patient. I reviewed the resident�s note and agree with findings and plan as documented in the resident�s note. Sub: tolerating PO denies pain in abd. improved sxs after taking hot shower No fevers chills N/V Full 12 point ROS
reviewed and negative except as documented Exam- vitals reviewed in EMR GEN-pale appearing heart RRR abd soft NT ND pos BS LE no edema Neuro AAO x 3
Plan:
# Intractable Vomiting
- likely CHS
- has had multiple ED visits
- could have component of endometriosis
- given Toradol and Haldol with improvement
- CT A/P 01/29- 1.Mild heterogeneity of the liver parenchyma with findings of periportal edema, likely secondary to hypervolemia. Mild wall thickening/pericholecystic fluid within the adjacent gallbladder
2.Unremarkable appendix. No nephrolithiasis or hydronephrosis.
3.Small amount of free fluid within the pelvis which could be physiologic in nature or secondary to a ruptured cyst. There is a rim-enhancing cyst within the left posterior pelvis measuring 19 mm.
- advance diet as tolerated - marianne PO
- advised to quit Cannibis
# Cannibis Use Disorder
- advised to quit
# Anemia
- resolved
- likely in part dilutional
Code Full
Dispo DC home
Time spent coordinating care, DC planning, review of DC plan of care with resident, transition of care, review of records, med rec/scripts sent electronically, consults, notes, d/w consultants, nursing, and CM� 31 mins
Original Note:
Today's Communication/Plan
-
Adding capsaicin cream
Monitor for PO intake
C/w IVF, pain control, antiemetics
Assessment / Plan
Assessment / Plan
20 year old female with recurrent episodes of intractable abdominal pain/nausea/vomiting x72 hours
CT Abd/pelvis W Iv Cont:
1. Mild heterogeneity of the liver parenchyma with findings of periportal edema, likely secondary to hypervolemia. Mild wall thickening/pericholecystic fluid within the adjacent gallbladder, which may be reactive in nature. Correlation with LFTs
recommended to exclude hepatitis.
2. Unremarkable appendix. No nephrolithiasis or hydronephrosis.
3. Small amount of free fluid within the pelvis which could be physiologic in nature or secondary to a ruptured cyst. There is a rim-enhancing cyst within the left posterior pelvis measuring 19 mm.
#Cannabinoid Hyperemesis Syndrome
- Patient has a history of cyclical vomiting/abdominal pain near time of menses which fits clinically, however she also has a clinical picture consistent with CHS along with concurrent continued cannabis use. Suspect sx are multifactorial, with
worsening of sx due to continued cannabis use.
- CT scan showing possible ruptured L ovarian cyst with small amount of free pelvic fluid
- c/w IVF
- Toradol prn for abd pain
- Add capsaicin cream for pain relief as n/v/abd pain persist
- Not tolerating regular diet, back on clears
#Cannabis Use Disorder
- counselled the patient on the importance of quitting cannabis use at she has now had 3 hospital visits for similar symptoms for which her cannabis use is likely contributing
DVT Ppx: Lovenox 40mg SC
Code Status: Full Code
Anticipated Discharge: Within 24 hours
Subjective/Interval History
-
Date of Service: February 01, 2025
Vomited this morning. Still experiencing cramp epigastric pain, 4-5/10 non-radiating, improved with Toradol. No new fevers/chills. No D/C/Blood BMs. Has been passing gas but not stool.
Objective Data
-
Labs:
Laboratory Results
02/01/25
05:18
WBC 7.9
Hgb 12.1
Hct 34.3 L
Plt Count 362
Sodium 139
Potassium 3.5
Chloride 105
Carbon Dioxide 23
BUN 6 L
Creatinine 0.6
Glucose 74
Calcium 9.4
Vital Signs:
Vital Signs
Temp Pulse Resp BP Pulse Ox
98.6 F 59 18 103/54 98
01/31/25 23:20 01/31/25 23:20 01/31/25 23:20 01/31/25 23:20 01/31/25 23:20
I&O
01/31/25 02/01/25 02/02/25
06:59 06:59 06:59
Intake Total 3260 / 3260 3700 / 3700
Balance 3260 / 3260 3700 / 3700
Review of Systems
-
History Source: Patient
Constitutional: Reports No Symptoms and Fever
EENT: Reports No Symptoms Reported
Respiratory: Reports No Symptoms
Cardiac: Reports No Symptoms
Abdomen/GI: Reports Abdominal Pain, Nausea and Vomiting
Genitourinary: Reports No Symptoms
Musculoskeletal: Reports No Symptoms
Skin: Reports No Symptoms
Neuro: Reports No Symptoms
Physical Exam
-
General: Well Developed, Well Nourished, No Apparent Distress, Comfortable and Conversant
HEENT: Normocephalic, Atraumatic, Moist Mucous Membranes, Anicteric and [place] Conjunctivae
Respiratory: Clear to Auscultation; Negative Wheezes, Rales or Rhonchi
Cardiac: Regular Rhythm and S1/S2; Negative Murmur or Rub
GI: Soft, Nondistended, Normal Bowel Sounds and Tender (Epigastric tenderness)
Genito-urinary: Deferred by me
Musculoskeletal: No Clubbing, No Cyanosis and No Edema
Skin: Warm, Dry and IV Access / Catheter Site
Neuro: Awake, Alert and Oriented
[2025-02-01 09:42] VITALS: BMI 18.5
[2025-02-01] MEDS: NSS 1000 IV (10:36)
[2025-02-01] MEDS: ZOSTRIX-HP 0.075% CREAM 1 APPLIC TOPICAL (12:08)
[2025-02-01 15:22] VITALS: BP 127/70
--- NOTE | 2025-02-01 15:36 | CM ---
Pt changed to inpatient . PT informed on inpatient status .
Pt tolerated full liquids.
She said she felt better and was ready for discharge.
She said her boyfriend mom Sandra will drive her home.
PLAN Home no needs
--- NOTE | 2025-02-01 16:50 | W.DCSUMMARY ---
Addendum entered and electronically signed by Fili Reza MD, Resident 02/02/25 08:29:
Patient was admitted on 01/29/2025, not 02/01
Addendum entered and electronically signed by Joesph Scott MD 02/01/25 22:55:
Read, reviewed, and agree. See same day progress note for additional details. Of note revised admission date is 01/29 NOT 02/01.
Rueprto Scott MD
Original Note:
Documented by User: Fili Reza MD, Resident 02/01/25 17:09
Discharge Summary
Discharge Data
Date of Admission: 02/01/25
Date of Discharge: 02/01/25
Total time spent discharging patient (in min): >30m
-
Pending Results: No
Hospital Course
Discharging Physician : Dr. Fili Reza, Dr. Joesph Scott
Disposition : Home
Primary care physician : Unknown
Principal Discharge diagnosis : Cannabinoid Hyperemesis Syndrome
Chronic Discharge diagnosis : Suspected Endometriosis
Hospital Course :
20 year old female with recurrent episodes of intractable abdominal pain/nausea/vomiting x72 hours
#Cannabinoid Hyperemsis Syndrome
- Daily Cannabis use >1 year, with new onset intractable vomiting, nausea, abdominal pain within 24 hours of last use of cannabis.
- CT scan showing possible ruptured L ovarian cyst with small amount of free pelvic fluid, but no other immediate causes for her sx
- managed with IVF
- Given x1 dose haldol with improvement in symptoms
- given prn Toradol, Zofran
- Advanced diet from NPO to clear liquids to full liquids with tolerance
- Hot showers eventually provided relief
#Cannabis Use Disorder
- counselled the patient on the importance of quitting cannabis use, as she has now had 3 hospital visits for similar symptoms for which her cannabis use is likely contributing. She expressed understanding.
She had no new episodes of N/V/Abd pain for >8hours, was tolerating her Full liquid diet and was discharged home.
The patient was given information to follow up with Gynecology at [facility] per her request.
Important imaging findings :
CT Abd/pelvis W Iv Cont:
LOWER CHEST: Lung bases clear. No pleural effusion.
LIVER: Mildly heterogeneous appearance with periportal edema.
GALLBLADDER: No radiopaque stones. Mild wall thickening/pericholecystic fluid.
BILE DUCTS: Within normal limits.
PANCREAS: Within normal limits.
SPLEEN: Within normal limits.
ADRENALS: Within normal limits.
KIDNEYS/URETERS: Within normal limits.
BOWEL: No obstruction or wall thickening. Appendix is unremarkable.
PERITONEUM: Small amount of free fluid within the pelvis with rim enhancing focus seen within the left pelvis, possibly a ruptured cyst measuring 19 mm (image 67, series 201).
REPRODUCTIVE: See above. Unremarkable appearance of the uterus and right ovary.
BLADDER: Within normal limits.
VESSELS: Non-aneurysmal abdominal aorta.
RETROPERITONEUM: No retroperitoneal or pelvic lymphadenopathy.
ABDOMINAL WALL: Within normal limits.
BONES: No suspicious lesions.
Procedure findings :
None.
Discharge Plan
-
Patient Disposition: Home (Routine Discharge)
Discharge Diagnosis/Procedures: cyclic vomiting from marijuana use, endometriosis contributing
Condition: Fair
Diet: Regular
Activity: As tolerated
Referrals:
Adelaida Singh MD [Active] - (For Endometriosis)
PRIVATE,PHYSICIAN [Family Provider] -
Prescriptions:
Discontinued
diphenhydramine HCl [Benadryl] 25 mg Capsule
25 mg PO DAILYPRN PRN (Reason: nausea/vomiting)
prochlorperazine maleate 10 mg tablet
10 mg PO Q8HPRN PRN (Reason: nausea and vomiting)
Discharge Orders:
Discharge Patient (As Directed); Ordered 02/01/25
Ordered By: Fili Reza
Discharge Date and Time
Discharge Date/Time: 02/01/25 16:42
Print Language: [place]

Documented by User: Joesph Scott MD 02/01/25 22:50
Discharge Summary
Discharge Data
Date of Admission: 02/01/25
Date of Discharge: 02/01/25
Discharge Plan
-
Patient Disposition: Home (Routine Discharge)
Discharge Diagnosis/Procedures: cyclic vomiting from marijuana use, endometriosis contributing
Condition: Fair
Diet: Regular
Activity: As tolerated
Referrals:
Adelaida Singh MD [Active] - (For Endometriosis)
PRIVATE,PHYSICIAN [Family Provider] -
Prescriptions:
Discontinued
diphenhydramine HCl [Benadryl] 25 mg Capsule
25 mg PO DAILYPRN PRN (Reason: nausea/vomiting)
prochlorperazine maleate 10 mg tablet
10 mg PO Q8HPRN PRN (Reason: nausea and vomiting)
Discharge Orders:
Discharge Patient (As Directed); Ordered 02/01/25
Ordered By: Fili Reza
Discharge Date and Time
Discharge Date/Time: 02/01/25 16:42
Print Language: [place]
--- NOTE | 2025-02-03 12:09 | PN.CDI ---
CDI
- -
CDI:
Physician Documentation Request
Admit Date: 02/01/25 10:59
Dear Doctor,
Patient admitted with nausea and vomiting.
Please review the following and provide your response in the progress notes.
Clinical Indicators:
Height: 5' 6'
Weight: 114 lbs
BMI: 18.5
If possible, please provide an associated diagnosis related to the abnormal BMI, such as:
Underweight
Cachectic
BMI is not significant
Other
BMI < or = to 19.9
Underweight
Weight Loss
Cachectic
Anorexia
Use of terms such as suspected, likely, concern for, or probable (associated with a specific diagnosis that is being evaluated, monitored, or treated as if it exists) are acceptable and can be coded in the inpatient setting, when documented at the
time of discharge.
Thank you,
Adriana Urena RN, BSN
CDI Specialist
Available via [place] text
Please use your independent medical judgment in providing your response.
== END 2025-02-01 16:42 | disposition home or self-care (01) | DRG 392 ==
LOC: 4 EAST ACU 10:59
PROVIDERS: Internal Medicine; ADMITTING PHYSICIAN Family Medicine; EMERGENCY PHYSICIAN Emergency Medicine
DX: R11.2 Nausea with vomiting, unspecified (principal); Z68.1 Body mass index [BMI] 19.9 or less, adult; F12.10 Cannabis abuse, uncomplicated; D64.9 Anemia, unspecified; E87.70 Fluid overload, unspecified; N80.9 Endometriosis, unspecified; N83.292 Other ovarian cyst, left side; R63.6 Underweight; F17.210 Nicotine dependence, cigarettes, uncomplicated
CPT/HCPCS: 74177; 80048; 80053; 80306; 81003; 83690; 84703; 85025; 85027; 93005; 96374; 96375; 99285; Q9967